=== PATIENT | female | born 1985 | race Caucasian/White ===

== ENCOUNTER 2016-10-27 22:44 | Emergency (ER) | payer BC ==
[~2016-10-27 22:44] MED LIST: AMBIEN10 M1 PO; AMOXIL500 MG PO; CYCLOBENZAPRINE10 M1 PO; FIORICET 50-301 EAC1 PO; IRON1 TAB; LUNESTA2 M1 PO; NAPROSYN500 M1 PO; NORCO 5-325 TA1 EACH PO; NORCO 5/325 TAB1 TAB PO; OMEPRAZOLE40 M2 PO; PRENATAL TABLE1 EAC4 PO; PRENATAL1 TAB; PROZAC40 M1 PO; RESTASIS0.4 ML/EA OP; SOMA350 M1 PO; ULTRAM50 M1 PO; VITAMIN D31000 UNI3 PO; XANAX1 M1 PO; ZOFRAN4 M2 PO
[2016-10-27] MEDS ORDERED: VERAPAMIL HCL PO (23:13)
[2017-01-23] MEDS ORDERED: ATIVAN1 M2 PO (20:52)
[2017-01-23] MEDS ORDERED: ZANAFLEX4 M2 PO (20:53)
[2017-01-23] MEDS ORDERED: TOPAMAX100 M2 PO (20:56)
[2017-01-23] MEDS ORDERED: NUCYNTA ER50 M1 PO (20:56)
[2017-01-24] MEDS ORDERED: BIOTIN1 M2 PO (13:53)
[2017-01-24] MEDS ORDERED: LAMICTAL100 M2 PO (13:53)
[2017-01-24] MEDS ORDERED: RIZATRIPTAN10 M3 PO (13:54)
[2017-01-25] MEDS ORDERED: FLAGYL500 M1 PO (11:58)
[2017-01-25] MEDS ORDERED: NORCO 5-325 TA1 EACH PO (12:00)
[2017-01-25] MEDS ORDERED: IMODIUM A-D2 M4 PO (12:00)
== END 2016-10-28 00:32 ==
LOC: EDMED 22:44
DX: G43.909 Migraine, unspecified, not intractable, without status migrainosus (principal)
CPT/HCPCS: J0780; J1170; J1200; J1885; J7030

== ENCOUNTER 2017-03-13 13:30 | Emergency (ER) | payer BC ==
[~2017-03-13] VITALS: Ht 149.9 cm; Wt 108.0 kg
[~2017-03-13 13:30] MED LIST changes: +ATIVAN1 M2 PO; +BIOTIN1 M2 PO; +FLAGYL500 M1 PO; +IMODIUM A-D2 M4 PO; +LAMICTAL100 M2 PO; +NUCYNTA ER50 M1 PO; +RIZATRIPTAN10 M3 PO; +TOPAMAX100 M2 PO; +VERAPAMIL HCL PO; +ZANAFLEX4 M2 PO
== END 2017-03-13 15:56 ==
LOC: EDMED 13:30
DX: R51 Headache (principal); G40.909 Epilepsy, unspecified, not intractable, without status epilepticus; Z98.890 Other specified postprocedural states; Z87.891 Personal history of nicotine dependence; Z79.899 Other long term (current) drug therapy
CPT/HCPCS: J0780; J1200; J1885; J2060; J7030